=== PATIENT | male | born 1935 | race Caucasian/White ===

== ENCOUNTER → 2016-08-27 | Outpatient (CLI) | payer MEDICARE, BC ==
[~2016-08-27] MED LIST: CO Q100C10 PO; INCR1INH INH; VITA400C29 PO; ZYLO300T4 PO
== END ==
LOC: M LAB 09:38
PROVIDERS: ATTEND Radiology Radiation Oncology
DX: C61 Malignant neoplasm of prostate (principal)

== ENCOUNTER → 2016-09-01 | Outpatient (CLI) | payer MEDICARE, BC | LOC: M ONCR 10:42 | PROVIDERS: ATTEND Radiology Radiation Oncology | DX: C61 Malignant neoplasm of prostate (principal) ==

== ENCOUNTER → 2017-02-11 | Outpatient (CLI) | payer MEDICARE, BC ==
[~2017-02-11] MED LIST changes: +VITA-110 PO; -VITA400C29 PO
== END ==
LOC: M LAB 09:50
PROVIDERS: ATTEND Radiology Radiation Oncology
DX: C61 Malignant neoplasm of prostate (principal)

== ENCOUNTER → 2017-02-16 | Outpatient (CLI) | payer MEDICARE, BC ==
--- NOTE | 2017-02-19 06:54 | RADONC ---
RADIATION ONCOLOGY FOLLOWUP NOTE DATE: 02/16/2017 CHART NUMBER: [id number] DIAGNOSIS: Prostate cancer. STAGE: IIA, T2N0M0. ECOG PERFORMANCE STATUS: 0 FOLLOWUP NOTE: Mr. 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 The patient presents today reporting that he is doing quite well with no complaints at this time related to his radiation therapy or disease other than some tenderness just below the nipple of the right breast. He reports that he has had this fullness in the subareolar area for about 2 months with tenderness. The patient apparently underwent a mammogram on 12/21/2016 for this and no suspicious areas were seen. The imaging was consistent with a unilateral gynecomastia. There were no suspicious microcalcifications. There was no cystic or solid mass. REVIEW OF SYSTEMS: Other than for his tender right breast, the patient's review of systems is noncontributory. He denies nausea, vomiting, fevers, chills, night sweats, diplopia, headaches, anxiety or depression, anorexia, weight loss, visual disturbances, chest pain, urinary or bowel difficulties, bone pain or neurological problems. PHYSICAL EXAMINATION: The patient is a well-developed, well-nourished male in no acute distress. HEENT exam is normocephalic, atraumatic. Extraocular movements are intact. There is no palpable cervical, supraclavicular, infraclavicular, axillary, or inguinal lymphadenopathy present. Lungs are clear to auscultation and percussion. Heart has a regular rate and rhythm. Examination of the patient's bilateral breasts reveal a left breast which is free of masses or nodularity. There is some fullness and tenderness in the subareolar area on the right breast, although I am not appreciating any hard nodules. Abdomen is benign with no hepatosplenomegaly, masses, or tenderness. Rectal examination reveals a normal anal sphincter tone. His prostate is smooth with no evidence of nodularity. Skeletal examination reveals no tenderness to pressure or percussion of the bony skeleton. Extremities reveal no clubbing, cyanosis, or edema. Neurologic exam is grossly intact as is the remainder of the physical examination. ASSESSMENT: The patient is clinically doing quite well with no evidence of disease at this time related to his prostate cancer. I had a lengthy discussion with this patient with regards to his right breast. He reports that the area of swelling has increased over the past month or so. I reassured him that I do believe this is gynecomastia and it would be unlikely to be a malignancy. In light of the patient's concern, however, I am working him up and ordering an MRI of his breasts bilaterally. I have instructed him to contact me the day after the MRI to discuss the results and will see him in follow up as well. Further recommendations will be made pending the results of the MRI. The patient will also be followed by his other physicians in the meantime. I have instructed him to contact us at any time should the fullness in the right breast were to worsen or if it causes him any further concerns. This issue has been and is in the process of being addressed by his primary physician, Dr. Hensley. cc: MD Ty Freitas MD MTDD
== END ==
LOC: M ONCR 11:30
PROVIDERS: ATTEND Radiology Radiation Oncology
DX: C61 Malignant neoplasm of prostate (principal)

== ENCOUNTER → 2017-02-18 | Outpatient (REF) | payer MEDICARE, BC ==
[2017-02-18 14:19] LABS: CREATININE FOR GFR 1.69 MG/DL (0.70-1.30); GLOMERULAR FILTRATION RATE 41.7 (>35)
== END ==
LOC: M LAB REF 12:36
PROVIDERS: ATTEND Radiology Radiation Oncology
DX: N63 Unspecified lump in breast (principal)

== ENCOUNTER → 2017-04-19 | Outpatient (REF) | payer MEDICARE, BC ==
[2017-04-19 20:59] LABS: ALBUMIN 3.9 GM/DL (3.2-5.2); ALBUMIN/GLOBULIN RATIO 1.22 (1.00-1.93); BILIRUBIN,TOTAL 0.5 MG/DL (0.2-1.0); CALCIUM LEVEL 8.8 MG/DL (8.8-10.2); CREATININE FOR GFR 1.34 MG/DL (0.70-1.30); GLOMERULAR FILTRATION RATE 54.5 (>35); POTASSIUM SERUM 4.2 MEQ/L (3.5-5.1); TOTAL PROTEIN 7.1 GM/DL (6.4-8.2)
[2017-04-19 21:18] LABS: MEAN CORPUSCULAR HEMOGLOBIN 34.7 pg (27.0-33.0); MEAN CORPUSCULAR HGB CONC 35.5 g/dl (32.0-36.5); MEAN CORPUSCULAR VOLUME 97.6 fl (80.0-96.0); WHITE BLOOD COUNT 5.7 K/mm3 (4.0-10.0)
== END ==
LOC: M LAB REF 20:36 → M LABDRWAD 20:36
PROVIDERS: ATTEND Family Medicine
DX: Z01.812 Encounter for preprocedural laboratory examination (principal)

== ENCOUNTER → 2017-05-20 | Outpatient (REF) | payer MEDICARE, BC | LOC: M LABDRWAD 09:30 | PROVIDERS: ATTEND Radiology Radiation Oncology | DX: C61 Malignant neoplasm of prostate (principal) ==

== ENCOUNTER → 2017-05-25 | Outpatient (CLI) | payer MEDICARE, BC ==
--- NOTE | 2017-05-26 08:52 | RADONC ---
RADIATION ONCOLOGY FOLLOWUP DATE: 05/25/2017 CHART NUMBER: [id number] DIAGNOSIS: Prostate cancer. STAGE: IIA, T2N0M0. ECOG PERFORMANCE STATUS: 0 FOLLOWUP NOTE: Mr. Sanchez is a very pleasant 81-year-old white male with the diagnosis of a stage IIA, L6gW2R1 moderate to poorly differentiated Gali score 7 (4-3) adenocarcinoma of the prostate who is presenting to us today for routine followup visit 1 year and 4 months post completion of external beam radiation therapy. The patient presents today reporting that he is doing quite well with no complaints at this time related to his radiation therapy or disease. He has no urinary or bowel difficulties. No bone pain. REVIEW OF SYSTEMS: The patient's review of systems is noncontributory. Denies nausea, vomiting, fevers, chills, night sweats, diplopia, headaches, anxiety or depression, anorexia, weight loss, visual disturbances, chest pain, urinary or bowel difficulties, bone pain, or neurological problems. PHYSICAL EXAMINATION: PHYSICAL EXAMINATION: The patient is a well-developed, well-nourished male in no acute distress. HEENT exam is normocephalic, atraumatic. Extraocular movements are intact. There is no palpable cervical, supraclavicular, infraclavicular, axillary, or inguinal lymphadenopathy present. Lungs are clear to auscultation and percussion. Heart has a regular rate and rhythm. Abdomen is benign with no hepatosplenomegaly, masses, or tenderness. Rectal examination reveals a normal anal sphincter tone. His prostate is smooth with no evidence of nodularity. Skeletal examination reveals no tenderness to pressure or percussion of the bony skeleton. Extremities reveal no clubbing, cyanosis, or edema. Neurologic exam is grossly intact, as is the remainder of the physical examination. ASSESSMENT: The patient is clinically no evidence of disease and will be seen by us again in 6 months for further followup. He will also continue to be followed by his other physicians as well. cc: MD Ty Freitas MD
== END ==
LOC: M ONCR 10:19
PROVIDERS: ATTEND Radiology Radiation Oncology
DX: C61 Malignant neoplasm of prostate (principal)

== ENCOUNTER → 2017-08-31 | Outpatient (REF) | payer MEDICARE, BC ==
[2017-08-31 13:01] LABS: ESTIMATED AVERAGE GLUCOSE 137 MG/DL (60-110); HEMOGLOBIN A1c 6.4 %
== END ==
LOC: M LABDRWAD 12:25
DX: Z01.818 Encounter for other preprocedural examination (principal); R73.03 Prediabetes
CPT/HCPCS: 83036

== ENCOUNTER → 2017-12-28 | Outpatient (REF) | payer MEDICARE, BC ==
[2017-12-28 13:37] LABS: ANION GAP 7 MEQ/L (8-16); BLOOD UREA NITROGEN 25 MG/DL (7-18); CARBON DIOXIDE LEVEL 26 MEQ/L (21-32); CHLORIDE LEVEL 110 MEQ/L (98-107); CREATININE FOR GFR 1.41 MG/DL (0.70-1.30); GLOMERULAR FILTRATION RATE 51.2 (>35); GLUCOSE, FASTING 99 MG/DL (70-100); POTASSIUM SERUM 4.5 MEQ/L (3.5-5.1); SODIUM LEVEL 143 MEQ/L (136-145)
[2017-12-28 14:05] LABS: ESTIMATED AVERAGE GLUCOSE 131 MG/DL (60-110); HEMOGLOBIN A1c 6.2 %
== END ==
LOC: M LABDRWAD 12:39
DX: R73.01 Impaired fasting glucose (principal)
CPT/HCPCS: 83036

== ENCOUNTER → 2018-01-30 | Outpatient (REF) | payer MEDICARE, BC ==
[2018-01-30 13:22] LABS: PROSTATIC SPECIFIC AG MONITOR 0.11 NG/ML (< 4.0)
== END ==
LOC: M LABDRWAD 12:14
DX: C61 Malignant neoplasm of prostate (principal)
CPT/HCPCS: 84153

== ENCOUNTER → 2018-02-01 | Outpatient (CLI) | payer MEDICARE, BC | LOC: M ONCR 10:12 | DX: C61 Malignant neoplasm of prostate (principal) ==

== ENCOUNTER → 2018-05-18 | Outpatient (REF) | payer MEDICARE, BC ==
[2018-05-18 13:09] LABS: PROSTATIC SPECIFIC AG MONITOR 0.14 NG/ML (< 4.0)
== END ==
LOC: M LABDRWAD 12:09
DX: C61 Malignant neoplasm of prostate (principal)
CPT/HCPCS: 84153

== ENCOUNTER → 2018-07-14 | Outpatient (REF) | payer MEDICARE, BC ==
[2018-07-14 18:00] LABS: PROSTATIC SPECIFIC AG MONITOR 0.2 NG/ML (< 4.0)
== END ==
LOC: M LAB REF 16:43
DX: C61 Malignant neoplasm of prostate (principal)
CPT/HCPCS: 84153

== ENCOUNTER → 2018-07-19 | Outpatient (CLI) | payer MEDICARE, BC | LOC: M ONCR 10:09 | DX: C61 Malignant neoplasm of prostate (principal) | CPT/HCPCS: G0463 ==

== ENCOUNTER → 2018-10-16 | Outpatient (CLI) | payer MEDICARE, BC ==
[~2018-10-16] MED LIST changes: -ZYLO300T4 PO; +ZYLO300T6 PO
[2018-10-16 13:48] LABS: BASO % 0.5 % (0.0-1.0); EOS # 0.4 10^3/uL (0.0-0.50); EOS % 7.3 % (0.0-3.0); HEMATOCRIT 45.4 % (42.0-52.0); LYMPH # 1.2 10^3/uL (1.5-4.5); LYMPH % 21.8 % (24.0-44.0); MEAN CORPUSCULAR HEMOGLOBIN 32.5 pg (27.0-33.0); MEAN CORPUSCULAR VOLUME 98.5 fl (80.0-96.0); MONO # 0.5 10^3/uL (0.0-0.8); NEUTROPHILS # 3.5 10^3/uL (1.8-7.7); NEUTROPHILS % 61.9 % (36.0-66.0); PLATELET COUNT, AUTOMATED 176 10^3/uL (150-450); RED BLOOD COUNT 4.61 10^6/uL (4.30-6.10); WHITE BLOOD COUNT 5.6 10^3/uL (4.0-10.0)
[2018-10-16 14:25] LABS: PERCENT SATURATION 24.1 % (19.7-50.0)
== END ==
LOC: M LAB 12:47
PROVIDERS: ATTEND Physician Assistant Surgical
DX: D64.9 Anemia, unspecified (principal)

== ENCOUNTER → 2018-11-23 | Outpatient (REF) | payer MEDICARE, BC | LOC: M SFHCADAM 16:02 | PROVIDERS: ATTEND Urology | DX: C61 Malignant neoplasm of prostate (principal) ==

== ENCOUNTER → 2019-06-22 | Outpatient (REF) | payer MEDICARE, BC ==
[2019-06-22 20:52] LABS: ALBUMIN 4.1 GM/DL (3.2-5.2); PERCENT SATURATION 39.2 % (19.7-50.0)
== END ==
LOC: M LABDRWAD 19:25
PROVIDERS: ATTEND Orthopaedic Surgery Adult Reconstructive Orthopaedic Surgery
DX: Z01.818 Encounter for other preprocedural examination (principal); M25.562 Pain in left knee; M17.12 Unilateral primary osteoarthritis, left knee; D63.8 Anemia in other chronic diseases classified elsewhere

== ENCOUNTER → 2019-10-15 | Outpatient (REF) | payer MEDICARE, BC | LOC: M SFHCADAM 10:39 | PROVIDERS: ATTEND Student in an Organized Health Care Education/Training Program | DX: C61 Malignant neoplasm of prostate (principal) ==

== ENCOUNTER → 2020-06-17 | Outpatient (REF) | payer MEDICARE, BC ==
[2020-06-17 12:54] LABS: HEMATOCRIT 50.2 % (42.0-52.0); HEMOGLOBIN 16.5 g/dl (13.5-17.5); MEAN CORPUSCULAR HGB CONC 32.9 g/dl (32.0-36.5); MEAN CORPUSCULAR VOLUME 100.4 fl (80.0-96.0); PLATELET COUNT, AUTOMATED 156 10^3/uL (150-450); WHITE BLOOD COUNT 6.3 10^3/uL (4.0-10.0)
[2020-06-17 13:32] LABS: BILIRUBIN,TOTAL 0.9 MG/DL (0.2-1.0); CALCIUM LEVEL 9.3 MG/DL (8.8-10.2); CHOLESTEROL RISK RATIO 3.118 (<5); CREATININE FOR GFR 1.62 MG/DL (0.70-1.30); GLOMERULAR FILTRATION RATE 43.4 (>35); POTASSIUM SERUM 4.7 MEQ/L (3.5-5.1); TOTAL PROTEIN 7.6 GM/DL (6.4-8.2)
== END ==
LOC: M LABDRWAD 12:35
PROVIDERS: ATTEND Family Medicine
DX: R73.01 Impaired fasting glucose (principal); Z79.899 Other long term (current) drug therapy

== ENCOUNTER → 2020-10-14 | Outpatient (REF) | payer MEDICARE, BC | LOC: M SFHCADAM 10:14 | PROVIDERS: ATTEND Urology | DX: C61 Malignant neoplasm of prostate (principal) ==

== ENCOUNTER → 2021-02-26 | Outpatient (REF) | payer MEDICARE, BC ==
[~2021-02-26] MED LIST changes: +LIDO85CR TP; +LYRI75CA PO; +MYRB50TA PO; +OYST500T92 PO; +TRAM50TA2 PO; +VITAE40CA PO
[2021-02-26 11:52] LABS: INR 1.01; PROTHROMBIN TIME 13.5 SECONDS (12.5-14.3)
[2021-02-26 11:53] LABS: PARTIAL THROMBOPLASTIN TIME 28.2 SECONDS (24.2-38.5)
== END ==
LOC: M LABDRWAD 11:16
PROVIDERS: ATTEND Family Medicine
DX: Z13.0 Encounter for screening for diseases of the blood and blood-forming organs and certain disorders involving the immune mechanism (principal)

== ENCOUNTER → 2021-03-03 | Outpatient (REF) | payer MEDICARE, BC | LOC: M LABDRWAD 12:22 | PROVIDERS: ATTEND Internal Medicine Nephrology | DX: I95.9 Hypotension, unspecified (principal); N18.31 Chronic kidney disease, stage 3a; Z85.46 Personal history of malignant neoplasm of prostate ==

== ENCOUNTER → 2021-03-05 | Outpatient (CLI) | payer MEDICARE, BC ==
[~2021-03-05] MED LIST changes: +ISOVUE-M 300 61% 15ML VIAL As Ordered ONE; +LIDOCAINE 1% MDV 20ML VIAL As Ordered ONE
[2021-03-05 11:15] VITALS: BP 148/78
--- NOTE | 2021-03-05 15:16 | REP ---
INDICATION: LUMBAR RADICULOPATHY. COMPARISON: Comparison CT study of the lumbar spine is from January 31, 2018. Comparison MRI study September 19, 2018.. TECHNIQUE: The injection procedure is performed and dictated separately. Helical scanning is acquired and 4 mm axial images are re-formatted. Coronal and sagittal MPR images are generated. FINDINGS: Preliminary digital antique finisher radiograph demonstrates bilateral hip arthroplasties, fiducial markers adjacent to the prostate, and transpedicle screws and dorsal fixation rods across the L4-5 disc level with ventral disc spacer in place at L4-5. There is good opacification of the thecal sac. There is mild to moderate central canal stenosis at the L3-4 disc level due to disc bulging, ligamentum flavum hypertrophy, and minimal facet hypertrophy. The midline AP dimension of the thecal sac at L3-4 is 7 mm. There is mild central canal stenosis at L2-3 due to the same factors. No bony foraminal encroachment is seen at either of these levels. The L1-2 level is unremarkable. At L4-5 there is some spray artifact from the fusion hardware. A laminectomy defect is visible at L4. There is post laminectomy widening of the thecal sac at this level. Mild diffuse disc bulging is present and there is a minimal stable L4-5 spondylolisthesis, 4 mm. At L5-S1 there is mild facet hypertrophy bilaterally. IMPRESSION: Post laminectomy and fusion L4-5 with stable 4 mm L4-5 spondylolisthesis. Moderate central canal stenosis L3-4 and mild central canal stenosis L2-3. <Electronically signed by Gilmer Becerril > 03/05/21 [id number]
--- NOTE | 2021-03-05 16:21 | REP ---
INDICATION: LUMBAR RADICULOPATHY. COMPARISON: None. TECHNIQUE: The procedure was performed under the general supervision of Dr. Becerril. The images were reviewed with Dr. Becerril. The risks and benefits were explained to the patient and informed consent was obtained. The L3-4 interspace was localized using fluoroscopic guidance. The skin was prepped and draped in a sterile fashion. 1% lidocaine was used as a local anesthetic. Using fluoroscopic guidance a 22 gauge spinal needle was inserted and advanced into the thecal sac. 10 mL of Isovue M 300 was injected. The needle was then removed. 0.6 minutes of fluoroscopy time was utilized for this procedure. FINDINGS: Images obtained after injection demonstrate lumbar spine surgical fusion hardware across the L4-5. There is ventral indentation of the thecal sac seen at the L3-4, L2-3 and L1-2 disc levels. Degenerative disc disease diffusely. No nerve root compression is appreciated. IMPRESSION: Fluoroscopic guidance for CT lumbar myelogram. Findings as described above. <Electronically signed by Ash Domínguez > 03/05/21 [id number] <Electronically signed by Gilmer Becerril > 03/05/21 [id number]
== END ==
LOC: M IRPRO 07:57
PROVIDERS: ATTEND Family Medicine
DX: M54.16 Radiculopathy, lumbar region (principal); M48.061 Spinal stenosis, lumbar region without neurogenic claudication; Z98.1 Arthrodesis status
CPT/HCPCS: 62304; 72131; Q9967

== ENCOUNTER → 2021-04-21 | Outpatient (REF) | payer MEDICARE, BC ==
[~2021-04-21] MED LIST changes: -ISOVUE-M 300 61% 15ML VIAL As Ordered ONE; -LIDOCAINE 1% MDV 20ML VIAL As Ordered ONE
== END ==
LOC: M LABDRWAD 16:46 → M SMT 16:46
PROVIDERS: ATTEND Urology
DX: C61 Malignant neoplasm of prostate (principal)

== ENCOUNTER → 2021-08-06 | Outpatient (CLI) | payer MEDICARE, BC ==
--- NOTE | 2021-08-06 12:51 | REPVR ---
PROCEDURE INFORMATION: Exam: CT Thoracic Spine Without Contrast Exam date and time: 08/06/2021 11:13 AM Age: 86 years old Clinical indication: Pain in thoracic spine; Other: Postlaminectomy syndrome, not elsewhere classified; Prior surgery; Surgery date: 1-6 months TECHNIQUE: Imaging protocol: Computed tomography images of the thoracic spine without contrast. Radiation optimization: All CT scans at this facility use at least one of these dose optimization techniques: automated exposure control; mA and/or kV adjustment per patient size (includes targeted exams where dose is matched to clinical indication); or iterative reconstruction. COMPARISON: [facility] Bone Scan Whole Body 09/01/2015 10:23 AM FINDINGS: Vertebrae: No acute fracture. Normal alignment. Discs/Spinal canal/Neural foramina: Mild degenerative changes of the thoracic spine are present. There is no severe spinal canal stenosis. Soft tissues: Unremarkable. Vasculature: Atherosclerotic calcifications are noted within the aorta and its branches. Pancreas: Extensive calcification is present in the pancreas, compatible with chronic pancreatitis. IMPRESSION: 1. No acute abnormality. 2. Chronic findings as discussed above. Electronically signed by: Dutch Hull On 08/06/2021 12:50:51 PM
== END ==
LOC: M RAD 11:01
PROVIDERS: ATTEND Orthopaedic Surgery
DX: M96.1 Postlaminectomy syndrome, not elsewhere classified (principal)

== ENCOUNTER → 2021-09-09 | Outpatient (REF) | payer MEDICARE, BC | LOC: M SFHCADAM 15:09 | PROVIDERS: ATTEND Urology | DX: C61 Malignant neoplasm of prostate (principal) ==

== ENCOUNTER → 2021-09-28 | Outpatient (REF) | payer MEDICARE, BC | LOC: M LAB REF 13:07 | PROVIDERS: ATTEND Internal Medicine Nephrology | DX: N18.32 Chronic kidney disease, stage 3b (principal) ==

== ENCOUNTER → 2021-10-26 | Outpatient (REF) | payer MEDICARE, BC ==
[2021-10-26 12:45] LABS: BASO # 0.1 10^3/uL (0.0-0.2); BASO % 0.9 % (0.0-1.0); EOS # 0.5 10^3/uL (0.0-0.5); HEMATOCRIT 44.8 % (42.0-52.0); HEMOGLOBIN 15.3 g/dl (13.5-17.5); LYMPH # 1.1 10^3/uL (1.5-5.0); LYMPH % 19.7 % (24.0-44.0); MEAN CORPUSCULAR HEMOGLOBIN 32.8 pg (27.0-33.0); MEAN CORPUSCULAR HGB CONC 34.2 g/dl (32.0-36.5); MEAN CORPUSCULAR VOLUME 95.9 fl (80.0-96.0); MONO # 0.5 10^3/uL (0.0-0.8); MONO % 8.1 % (2.0-8.0); NEUTROPHILS # 3.5 10^3/uL (1.5-8.5); NEUTROPHILS % 61.9 % (36.0-66.0); PLATELET COUNT, AUTOMATED 143 10^3/uL (150-450); RED BLOOD COUNT 4.67 10^6/uL (4.30-6.10); WHITE BLOOD COUNT 5.7 10^3/uL (4.0-10.0)
[2021-10-26 12:51] LABS: ALBUMIN 3.8 GM/DL (3.2-5.2); BILIRUBIN,TOTAL 0.8 MG/DL (0.2-1.0); CALCIUM LEVEL 9.2 MG/DL (8.8-10.2); CREATININE FOR GFR 1.57 MG/DL (0.70-1.30); GLOMERULAR FILTRATION RATE 44.8 (>35); POTASSIUM SERUM 4.3 MEQ/L (3.5-5.1); TOTAL PROTEIN 6.8 GM/DL (6.4-8.2)
== END ==
LOC: M LABDRWAD 12:25
PROVIDERS: ATTEND Family Medicine
DX: Z01.818 Encounter for other preprocedural examination (principal)

== ENCOUNTER → 2022-06-16 | Outpatient (CLI) | payer MEDICARE, BC ==
[2022-06-16 17:16] LABS: BASO # 0.1 10^3/uL (0.0-0.2); BASO % 1.3 % (0.0-1.0); EOS # 0.5 10^3/uL (0.0-0.5); EOS % 7.4 % (0.0-3.0); HEMATOCRIT 43.7 % (42.0-52.0); HEMOGLOBIN 14.3 g/dl (13.5-17.5); LYMPH # 1.4 10^3/uL (1.5-5.0); LYMPH % 22.6 % (24.0-44.0); MEAN CORPUSCULAR HGB CONC 32.7 g/dl (32.0-36.5); MEAN CORPUSCULAR VOLUME 100.9 fl (80.0-96.0); MONO # 0.4 10^3/uL (0.0-0.8); MONO % 6.7 % (2.0-8.0); NEUTROPHILS # 3.8 10^3/uL (1.5-8.5); NEUTROPHILS % 61.8 % (36.0-66.0); PLATELET COUNT, AUTOMATED 161 10^3/uL (150-450); RED BLOOD COUNT 4.33 10^6/uL (4.30-6.10); WHITE BLOOD COUNT 6.1 10^3/uL (4.0-10.0)
[2022-06-16 18:13] LABS: ALBUMIN 3.7 GM/DL (3.2-5.2); BILIRUBIN,TOTAL 0.5 MG/DL (0.2-1.0); CALCIUM LEVEL 8.9 MG/DL (8.8-10.2); CREATININE FOR GFR 1.44 MG/DL (0.70-1.30); GLOMERULAR FILTRATION RATE 49.5 (>35); POTASSIUM SERUM 4.2 MEQ/L (3.5-5.1); THYROID STIMULATING HORMONE 1.43 uIU/ML (0.358-3.740); TOTAL PROTEIN 6.7 GM/DL (6.4-8.2)
== END ==
LOC: M WUC 14:22
PROVIDERS: ATTEND Family Medicine
DX: R53.83 Other fatigue (principal)

== ENCOUNTER → 2022-06-29 | Outpatient (REF) | payer MEDICARE, BC | LOC: M LABWUC 16:57 | PROVIDERS: ATTEND Urology | DX: C61 Malignant neoplasm of prostate (principal) ==

== ENCOUNTER → 2022-07-19 | Outpatient (CLI) | payer MEDICARE, BC | LOC: M PLAIMG 12:30 | PROVIDERS: ATTEND Physician Assistant | DX: Z95.0 Presence of cardiac pacemaker (principal) ==

== ENCOUNTER → 2022-09-24 | Outpatient (CLI) | payer MEDICARE, BC ==
[2022-09-24 17:03] LABS: ALBUMIN 3.8 G/DL (3.2-5.2); BILIRUBIN,TOTAL 0.7 MG/DL (0.3-1.2); CALCIUM LEVEL 9.1 MG/DL (8.3-10.6); CREATININE FOR GFR 1.32 MG/DL (0.70-1.30); GLOMERULAR FILTRATION RATE 54.6 (>35); TOTAL PROTEIN 6.7 G/DL (5.7-8.2)
== END ==
LOC: M WUC 10:44
PROVIDERS: ATTEND Family Medicine
DX: C61 Malignant neoplasm of prostate (principal); R73.01 Impaired fasting glucose; Z79.899 Other long term (current) drug therapy

== ENCOUNTER → 2022-09-24 | Outpatient (CLI) | payer MEDICARE, BC | LOC: M WUC 10:47 | PROVIDERS: ATTEND Urology | DX: C61 Malignant neoplasm of prostate (principal) ==

== ENCOUNTER → 2023-02-23 | Outpatient (CLI) | payer MEDICARE, BC ==
[2023-02-23 17:32] LABS: BASO # 0.1 10^3/uL (0.0-0.2); EOS # 0.6 10^3/uL (0.0-0.5); EOS % 8.9 % (0.0-3.0); HEMATOCRIT 42.3 % (42.0-52.0); HEMOGLOBIN 14.3 g/dl (13.5-17.5); LYMPH # 1.6 10^3/uL (1.5-5.0); LYMPH % 21.8 % (24.0-44.0); MEAN CORPUSCULAR HEMOGLOBIN 33.3 pg (27.0-33.0); MEAN CORPUSCULAR HGB CONC 33.8 g/dl (32.0-36.5); MEAN CORPUSCULAR VOLUME 98.4 fl (80.0-96.0); MONO # 0.4 10^3/uL (0.0-0.8); MONO % 5.7 % (2.0-8.0); NEUTROPHILS # 4.5 10^3/uL (1.5-8.5); NEUTROPHILS % 62.2 % (36.0-66.0); PLATELET COUNT, AUTOMATED 176 10^3/uL (150-450); WHITE BLOOD COUNT 7.2 10^3/uL (4.0-10.0)
[2023-02-23 17:56] LABS: ALBUMIN 3.9 G/DL (3.2-5.2); BILIRUBIN,TOTAL 0.6 MG/DL (0.3-1.2); CALCIUM LEVEL 8.9 MG/DL (8.3-10.6); CREATININE FOR GFR 1.33 MG/DL (0.70-1.30); GLOMERULAR FILTRATION RATE 54.1 (>35); POTASSIUM SERUM 4.5 MMOL/L (3.5-5.1); TOTAL PROTEIN 6.5 G/DL (5.7-8.2)
[2023-02-23 18:08] LABS: URIC ACID 4.5 MG/DL (3.7-9.2)
== END ==
LOC: M WUC 14:00
PROVIDERS: ATTEND Family Medicine
DX: M10.9 Gout, unspecified (principal); R73.01 Impaired fasting glucose; Z79.899 Other long term (current) drug therapy

== ENCOUNTER → 2023-03-28 | Outpatient (CLI) | payer MEDICARE, BC | LOC: M WUC 11:46 | PROVIDERS: ATTEND Urology | DX: C61 Malignant neoplasm of prostate (principal) ==

== ENCOUNTER → 2023-09-26 | Outpatient (REF) | payer MEDICARE, BC | LOC: M LABWUC 16:49 → M LAB REF 16:49 | PROVIDERS: ATTEND Urology | DX: C61 Malignant neoplasm of prostate (principal) ==

== ENCOUNTER → 2024-04-30 | Outpatient (CLI) | payer MEDICARE, BC | LOC: M WUC 11:03 | PROVIDERS: ATTEND Urology | DX: C61 Malignant neoplasm of prostate (principal) ==

== ENCOUNTER → 2024-05-21 | Outpatient (CLI) | payer MEDICARE, BC | LOC: M RAD 07:40 | PROVIDERS: ATTEND Student in an Organized Health Care Education/Training Program | DX: M96.1 Postlaminectomy syndrome, not elsewhere classified (principal) ==

== ENCOUNTER → 2024-09-29 | Outpatient (CLI) | payer MEDICARE, BC | LOC: M RAD 11:49 | PROVIDERS: ATTEND Physician Assistant | DX: R05.9 Cough, unspecified (principal); R06.02 Shortness of breath ==

== ENCOUNTER → 2024-10-19 | Outpatient (REF) | payer MEDICARE, BC | LOC: M LABWUC 12:28 | PROVIDERS: ATTEND Urology | DX: C61 Malignant neoplasm of prostate (principal) ==

== ENCOUNTER → 2025-04-25 | Outpatient (CLI) | payer MEDICARE, BC | LOC: M WUC 13:21 | PROVIDERS: ATTEND Urology | DX: C61 Malignant neoplasm of prostate (principal) ==

== ENCOUNTER → 2025-04-26 | Outpatient (CLI) | payer MEDICARE, BC | LOC: M WUC 11:19 | PROVIDERS: ATTEND Family Medicine | DX: M25.571 Pain in right ankle and joints of right foot (principal); M79.89 Other specified soft tissue disorders ==

== ENCOUNTER → 2025-07-10 | Outpatient (REF) | payer MEDICARE, BC ==
[~2025-07-10] MED LIST changes: +ALLO300T2 PO; +AZEL1SPR3; +CEFD300CAP PO; +CIPR500T39 PO; +HYDR-3713 PO; +IPRA6SP; +VITA200C21 PO
[2025-07-10 13:30] LABS: APPEARANCE, URINE HAZY (CLEAR); BACTERIA, URINE AUTO 1+ (NEGATIVE); BILIRUBIN, URINE AUTO NEGATIVE (NEGATIVE); BLOOD, URINE BLOOD 1+ (NEGATIVE); GLUCOSE, URINE (UA) AUTO NEGATIVE (NEGATIVE); KETONE, URINE AUTO NEGATIVE (NEGATIVE); LEUKOCYTE ESTERASE, URINE AUTO 3+ (NEGATIVE); MUCUS, URINE SMALL (NEGATIVE); NITRITE, URINE AUTO NEGATIVE (NEGATIVE); PROTEIN, URINE AUTO 1+ mg/dL (NEGATIVE); RBC, URINE AUTO 10 /HPF (0-3); SPECIFIC GRAVITY URINE AUTO 1.014 (1.002-1.035); SQUAMOUS EPITHELIAL CELL UR AU 0 /HPF (0-6); UROBILINOGEN, URINE AUTO 0.2 mg/dL (0.0-2.0); WBC, URINE AUTO TNTC /HPF (0-3)
== END ==
LOC: M SMT 12:42
PROVIDERS: ATTEND Urology
DX: R30.0 Dysuria (principal)